=== PATIENT | female | born 2000 | race African-American/Black ===

== ENCOUNTER 2020-04-23 00:59 | Emergency (ER) | payer BC ==
[~2020-04-23] VITALS: Ht 162.6 cm; Wt 71.8 kg
[2020-04-23 01:08] VITALS: BP 114/75
[2020-04-23] MEDS ORDERED: ondansetron 4mg rapidly disintigrating tab PO ONE (01:10)
[2020-04-23 02:00] LABS: HEMOGLOBIN 12.3 g/dl (12.0-16.0); MONOCYTES # (AUTO) 0.7 X10'3 (0-0.9)
[2020-04-23 02:04] LABS: BASOPHILS # (AUTO) 0.1 X10'3 (0-0.2); BASOPHILS % (AUTO) 1.2 % (0-1); EOSINOPHILS # (AUTO) 0.4 X10'3 (0-0.9); EOSINOPHILS % (AUTO) 3.1 % (0-6); HEMATOCRIT 37.7 % (35.0-45.0); LYMPHOCYTES # (AUTO) 3.6 X10'3 (1.1-4.8); LYMPHOCYTES % (AUTO) 30.5 % (21-51); MEAN CORPUSCULAR HEMOGLOBIN 27.1 PG (27.0-31.0); MEAN CORPUSCULAR HGB CONC 32.7 g/dL (33.0-36.5); MEAN CORPUSCULAR VOLUME 82.8 FL (78-98); MEAN PLATELET VOLUME 8.1 FL (7.4-10.4); MONOCYTES % (AUTO) 5.7 % (2-12); NEUTROPHILS % (AUTO) 59.5 % (42-75); PLATELET COUNT 441 X10'3 (140-440); RED BLOOD COUNT 4.55 X10'6 (4.20-5.60); RED CELL DISTRIBUTION WIDTH 15.4 % (11.5-14.5); WHITE BLOOD COUNT 11.7 X10'3 (4.5-11.0)
[2020-04-23 02:21] LABS: ALANINE AMINOTRANSFERASE 23 U/L (12-78); ANION GAP 9 (8-16); ASPARTATE AMINO TRANSFERASE 13 U/L (10-37); BILIRUBIN,TOTAL 0.1 MG/DL (0.1-1.0); BLOOD UREA NITROGEN 12 MG/DL (7-18); BUN/CREATININE RATIO 14.1 (6.6-38.0); CHLORIDE 104 MMOL/L (99-107); CREATININE 0.85 MG/DL (0.40-0.90); GLUCOSE 85 MG/DL (70-104); LIPASE 84 U/L (73-393); POTASSIUM 3.6 MMOL/L (3.5-5.1); SODIUM 140 MMOL/L (135-145); TOTAL CARBON DIOXIDE 27.5 MMOL/L (24-32); TOTAL PROTEIN 8.2 G/DL (6.4-8.2); eGFR > 90 ML/MIN
[2020-04-23 02:33] LABS: ALKALINE PHOSPHATASE 72 IU/L (20-180)
[2020-04-23] MEDS ORDERED: ONDA4TAB6 PO (02:37)
== END 2020-04-23 03:18 | disposition home or self-care (01) ==
LOC: ER 01:01
DX: R11.2 Nausea with vomiting, unspecified (principal); R19.7 Diarrhea, unspecified; R68.83 Chills (without fever); J45.909 Unspecified asthma, uncomplicated; Z88.0 Allergy status to penicillin; Z79.899 Other long term (current) drug therapy
CPT/HCPCS: 36415; 80053; 83690; 85025; 99283

== ENCOUNTER 2021-08-26 11:12 | Emergency (ER) | payer BC ==
[~2021-08-26] VITALS: Ht 152.4 cm; Wt 68.2 kg
[~2021-08-26 11:12] MED LIST: ONDA4TAB6 PO
[2021-08-26 12:34] VITALS: BP 139/84
[2021-08-26] MEDS ORDERED: ONDA4TAB12 PO (13:06)
== END 2021-08-26 15:03 | disposition home or self-care (01) ==
LOC: ER 11:12
DX: B34.9 Viral infection, unspecified (principal); R42 Dizziness and giddiness; R11.2 Nausea with vomiting, unspecified; R19.7 Diarrhea, unspecified; J45.909 Unspecified asthma, uncomplicated; F41.9 Anxiety disorder, unspecified; Z98.890 Other specified postprocedural states; Z88.0 Allergy status to penicillin; Z79.899 Other long term (current) drug therapy
CPT/HCPCS: 99283